=== PATIENT | female | born 1945 | race Caucasian/White ===

== ENCOUNTER 2016-05-31 15:36 | Emergency (ER) | payer OTHER ==
[2016-05-31 15:52] VITALS: BP 151/79
--- NOTE | 2016-05-31 16:34 | UC ---
Complaint Female HPI - HPI Summary HPI Summary: 70 yo female with dysuria/urgency /frequency x 1 day no f/c no n/v no back or abd pain - History Of Current Complaint Chief Complaint: UCGU Stated Complaint: FREQUENT URINATION Time Seen by Provider: 05/31/16 16:30 Hx Obtained From: Patient Onset/Duration: Gradual Onset, Lasting Hours Timing: Intermittent, Lasting Seconds Severity Initially: Moderate Severity Currently: None Pain Intensity: 0 - pain only when voiding Pain Scale Used: 0-10 Numeric Character: Burning Aggravating Factor(s): Urination Associated Signs And Symptoms: Negative: Fever, Back Pain, Vaginal Bleeding/ Discharge, Vaginal Discharge, Nausea, Vomiting(# Of Episodes =), Genital Swelling Related Hx: Similar Episode/Dx as: - uti - Allergies/Home Medications Allergies/Adverse Reactions: Allergies Allergy/AdvReac Type Severity Reaction Status Date / Time MUSTS AND MOLDS Allergy Sneezing Uncoded 05/31/16 15:52 TOMATOS Allergy ASTHMA Uncoded 05/31/16 15:52 SYMPTOMS Home Medications: Home Medications Albuterol Sulfate [Proair Respiclick] 05/31/16 [History Confirmed 05/31/16] Loratadine [Claritin] 10 mg PO 05/31/16 [History] Rx Nasal Reese* 05/31/16 [History] PMH/Surg Hx/FS Hx/Imm Hx Previously Healthy: Yes Endocrine History Of: Denies: Diabetes Cardiovascular History Of: Reports: Hypertension - ON MEDS Denies: Cardiac Disorders, Pacemaker/ICD, Congestive Heart Failure Respiratory History Of: Reports: Asthma Denies: COPD GI/ History Of: Reports: Ulcer - gerd Denies: Renal Disease Psychological History Of: Reports: Anxiety - ASTHMA RELATED, Depression - Surgical History Surgical History: Yes Surgery Procedure, Year, and Place: right benign cyst removed from leg near her rt knee Lumpectomy Right breast 01/16/12 Left knee miniscus repair 09/2013 AND LIPOMA REMOVAL - Family History Known Family History: Positive: Hypertension - Social History Alcohol Use: Rare Alcohol Amount: 1 PER MONTH Substance Use Type: None Smoking Status (MU): Former Smoker Amount Used/How Often: 1/2 PACK A DAY Have You Smoked in the Last Year: No When Did the Patient Quit Smoking/Using Tobacco: 1989 - Immunization History Most Recent Influenza Vaccination: Jan 2015 Most Recent Tetanus Shot: 2013 Most Recent Pneumonia Vaccination: 2014 Review of Systems Constitutional: Negative Skin: Negative Eyes: Negative ENT: Negative Respiratory: Negative Cardiovascular: Negative Gastrointestinal: Negative Genitourinary: Dysuria, Frequency, Urgency Motor: Negative Neurovascular: Negative Musculoskeletal: Negative Neurological: Negative Psychological: Negative All Other Systems Reviewed And Are Negative: Yes Physical Exam Triage Information Reviewed: Yes Appearance: Well-Appearing, No Pain Distress, Well-Nourished Vital Signs: Initial Vital Signs Temp 97.8 F 05/31/16 15:48 Pulse 71 05/31/16 15:48 Resp 16 05/31/16 15:48 BP 151/79 05/31/16 15:48 Pulse Ox 100 05/31/16 15:48 Vital Signs Reviewed: Yes Eyes: Positive: Conjunctiva Clear ENT: Positive: Normal ENT inspection, Hearing grossly normal. Negative: Nasal congestion, Nasal drainage, Tonsillar swelling, Tonsillar exudate, Trismus, Muffled/hoarse voice Neck: Positive: Supple, Nontender Respiratory: Positive: Lungs clear, Normal breath sounds, No respiratory distress, No accessory muscle use Cardiovascular: Positive: RRR, No Murmur, Pulses Normal Abdomen Description: Positive: Nontender, No Organomegaly, Soft. Negative: CVA Tenderness (R), CVA Tenderness (L) Musculoskeletal: Positive: ROM Intact, No Edema Neurological Exam: Normal Neurological: Positive: Alert Psychological Exam: Normal Skin Exam: Normal Complaint Female Dx - Differential Dx/Diagnosis Provider Diagnoses: UTI Discharge - Discharge Plan Condition: Stable Disposition: HOME Prescriptions: Nitrofurantoin Monohyd Macro [Macrobid] 100 mg PO BID #14 cap Phenazopyridine TAB* [Pyridium TAB*] 100 mg PO TID #6 tab Patient Education Materials: Urinary Tract Infection in Women (ED) Referrals: Judi Da Silva MD [Primary Care Provider] - 3 Days (if not better) Additional Instructions: recheck for new or worsening symptoms I expect you to be normal or near normal within a couple of days a urine culture is pending
[2016-05-31] MEDS ORDERED: Nitrofurantoin Macrocrystals* 100 MG CAP PO ONE (16:36)
[2016-05-31] MEDS ORDERED: Phenazopyridine TAB* 100 MG PO ONE (16:36)
[2016-05-31] MEDS ORDERED: Nitrofurantoin Macrocrystals* 50 MG CAP PO ONE (16:43)
== END 2016-05-31 16:40 | disposition home or self-care (01) ==
LOC: UCEAST 15:36
DX: N39.0 Urinary tract infection, site not specified (principal); I10 Essential (primary) hypertension; Z87.891 Personal history of nicotine dependence
CPT/HCPCS: 81002; 87086; 99212; A9270-GY; G0463

== ENCOUNTER → 2016-07-30 06:50 | Day surgery (SDC) | payer OTHER ==
[~2016-07-30 06:50] MED LIST: Acetaminophen TAB* 325 MG PO PRN; Buffered Lidocaine 1% SYRIN* 3 ML/SYR SYRINGE INTRADERM ONE; Cyclopentolate 1% OPTH.SOL* 2 ML BTL ONE; Flurbiprofen 0.03% OPTH.SOL* 2.5 ML BTL ONE; Lidocaine 1% MPF* 2 ML VIAL ONE; Lidocaine 2% EPI 1:200000 MPF* 20 ML VIAL ONE; Midazolam* 1 MG/ML 2 ML VIAL (2 MG) ONE; Neomycin/Polymy/Dex OPTH.SUSP* MAXITROL 0.1% 5 ML ONE; Phenylephrine 2.5% OPTH.SOL* 2 ML BTL ONE; Povidone Iodine 5% OPTH* 30 ML BTL ONE; Proparacaine 0.5% OPHTH.SOL* 15 ML BTL ONE; acetaZOLAMIDE TAB* 250 MG ONE; fentaNYL* 50 MCG/ML 2 ML VIAL (100 MCG VIAL) ONE
[2016-07-30 09:37] VITALS: BP 154/79
--- NOTE | 2016-07-30 10:25 | OP ---
DATE OF OPERATION: 07/30/2016. DATE OF : 1945. SURGEON: João Cortes M.D. PREOPERATIVE DIAGNOSIS: Cataract right eye. POSTOPERATIVE DIAGNOSIS: Cataract right eye. OPERATIVE PROCEDURE: Phacoemulsification right eye with IOL and CTR incision. PROCEDURE: The patient was brought to the operating room after being given 1/2 % Alcaine with epinephrine drops in the preoperative area. The eye was prepped and draped in the usual sterile fashion. Sterile drape and eyelid speculum were placed. Again, topical 1/2% Alcaine with epinephrine was given. A paracentesis incision was made at the 9 o'clock position with the No.75 blade. Clear cornea incision 2.2 x 2.2-mm was created at the 12 o'clock position starting at the anterior limbus using the 2.2-mm keratome. The anterior chamber was irrigated with 0.4 mL of 1% non-preservative intracameral lidocaine and filled with DisCoVisc. A capsulorrhexis was completed using the cystotome and the Utrata forceps. Hydrodissection was performed with balanced salt solution. The lens nucleus was removed with the Phacoemulsification handpiece without incident. Cortex was removed with the irrigation-aspiration handpiece. The capsular bag was re-inflated using DisCoVisc and an SN60WF 16.5 implant was inserted with the shooter, followed by an Carlos ACTR 12 capsular tension ring inserted with the shooter. The irrigation-aspiration handpiece was used to remove all residual DisCoVisc. The eye was refilled with balanced salt solution and the wound checked and found to be watertight. Topical Maxitrol drops were given. [id number]/[facility] #: [id number] [facility]ITAL[facility]
== END | disposition home or self-care (01) ==
LOC: OREAST 06:50
PROVIDERS: ATTEND Specialist
DX: H25.811 Combined forms of age-related cataract, right eye (principal); H40.1414 Capsular glaucoma with pseudoexfoliation of lens, right eye, indeterminate stage; I10 Essential (primary) hypertension; J45.909 Unspecified asthma, uncomplicated; E66.01 Morbid (severe) obesity due to excess calories; Z68.41 Body mass index [BMI] 40.0-44.9, adult
CPT/HCPCS: J2250; J3010; V2632

== ENCOUNTER → 2016-08-06 06:16 | Day surgery (SDC) | payer OTHER ==
[~2016-08-06 06:16] MED LIST changes: -Midazolam* 1 MG/ML 2 ML VIAL (2 MG) ONE; +Midazolam* 1 MG/ML 5 ML VIAL (5 MG) ONE; -fentaNYL* 50 MCG/ML 2 ML VIAL (100 MCG VIAL) ONE
[2016-08-06 08:25] VITALS: BP 170/83
--- NOTE | 2016-08-06 09:36 | OP ---
DATE OF OPERATION: 08/06/2016 - [facility] DATE OF : 1945. SURGEON: João Cortes M.D. PREOPERATIVE DIAGNOSIS: Cataract left eye. POSTOPERATIVE DIAGNOSIS: Cataract left eye. OPERATIVE PROCEDURE: Phacoemulsification left eye with IOL. DESCRIPTION OF PROCEDURE: The patient was brought to the operating room after being given 1/2% Alcaine with epinephrine drops in the preoperative area. The eye was prepped and draped in the usual sterile fashion. Sterile drape and eyelid speculum were placed. Again, topical 1/2% Alcaine with epinephrine was given. A paracentesis incision was made at the 3 o'clock position with the No.75 blade. Clear cornea incision 2.2 x 2.2-mm was created at the 6 o'clock position starting at the anterior limbus using the 2.2-mm keratome. The anterior chamber was irrigated with 0.4 mL of 1% non-preservative intracameral lidocaine and filled with DisCoVisc. A capsulorrhexis was completed using the cystotome and the Utrata forceps. Hydrodissection was performed with balanced salt solution. The lens nucleus was removed with the Phacoemulsification handpiece without incident. Cortex was removed with the irrigation-aspiration handpiece. The capsular bag was re-inflated using DisCoVisc and an [id number] implant was inserted with the shooter. The irrigation-aspiration handpiece was used to remove all residual DisCoVisc. The eye was refilled with balanced salt solution and the wound checked and found to be watertight. Topical Maxitrol drops were given. [id number]/[facility] #: [id number] [facility]
== END | disposition home or self-care (01) ==
LOC: OREAST 06:16
PROVIDERS: ATTEND Specialist
DX: H25.812 Combined forms of age-related cataract, left eye (principal); H40.1411 Capsular glaucoma with pseudoexfoliation of lens, right eye, mild stage; I10 Essential (primary) hypertension; J45.909 Unspecified asthma, uncomplicated; K21.9 Gastro-esophageal reflux disease without esophagitis
CPT/HCPCS: J2250; V2632

== ENCOUNTER 2016-08-26 12:48 | Emergency (ER) | payer OTHER ==
[2016-08-26 13:56] VITALS: BP 148/82
--- NOTE | 2016-08-26 14:44 | UC ---
Complaint Female HPI - HPI Summary HPI Summary: Increae frequency of urination with irratation while voiding for 2 days - History Of Current Complaint Chief Complaint: UCGU Stated Complaint: UTI -TYPE SYMPTOMS Time Seen by Provider: 08/26/16 14:25 Hx Obtained From: Patient ?: No Onset/Duration: Sudden Onset, Still Present Timing: Constant Severity Initially: Moderate Severity Currently: Moderate Character: Burning Aggravating Factor(s): Urination Alleviating Factor(s): Nothing Associated Signs And Symptoms: Positive: Negative - Allergies/Home Medications Allergies/Adverse Reactions: Allergies Allergy/AdvReac Type Severity Reaction Status Date / Time dust and molds Allergy Wheezing Uncoded 08/26/16 13:56 TOMATOS Allergy ASTHMA Uncoded 08/26/16 13:56 SYMPTOMS Home Medications: Home Medications HYDROcodone/ACETAMIN 5-325 MG* [[place] 5-325 TAB*] 1 tab PO QID PRN 08/26/16 [ History Confirmed 08/26/16] PMH/Surg Hx/FS Hx/Imm Hx Previously Healthy: No Endocrine History Of: Denies: Diabetes Cardiovascular History Of: Reports: Hypertension - ON MEDS Denies: Cardiac Disorders, Pacemaker/ICD, Congestive Heart Failure Respiratory History Of: Reports: Asthma, Bronchitis - june 30, was on meds, ok now Denies: COPD GI/ History Of: Reports: Ulcer - gerd Denies: Renal Disease Psychological History Of: Reports: Anxiety - ASTHMA RELATED, Depression - Surgical History Surgical History: Yes Surgery Procedure, Year, and Place: right benign cyst removed from leg near her rt knee Lumpectomy Right breast 01/16/12 Left knee miniscus repair 09/2013 AND LIPOMA REMOVAL - Family History Known Family History: Positive: None, Hypertension - Social History Occupation: Retired Lives: With Family Alcohol Use: Rare Alcohol Amount: 1 PER MONTH Substance Use Type: None Smoking Status (MU): Former Smoker Amount Used/How Often: 1/2 PACK A DAY Have You Smoked in the Last Year: No When Did the Patient Quit Smoking/Using Tobacco: 1989 - Immunization History Most Recent Influenza Vaccination: Jan 2015 Most Recent Tetanus Shot: 2012 Most Recent Pneumonia Vaccination: 2013 Review of Systems Constitutional: Negative Skin: Negative Eyes: Negative ENT: Negative Respiratory: Negative Cardiovascular: Negative Gastrointestinal: Negative Genitourinary: Dysuria, Frequency, Urgency Motor: Negative Neurovascular: Negative Musculoskeletal: Negative Neurological: Negative Psychological: Negative All Other Systems Reviewed And Are Negative: Yes Physical Exam Triage Information Reviewed: Yes Appearance: Well-Appearing, No Pain Distress, Well-Nourished Vital Signs: Initial Vital Signs Temp 96.9 F 08/26/16 13:54 Pulse 75 08/26/16 13:54 Resp 16 08/26/16 13:54 BP 148/82 08/26/16 13:54 Pulse Ox 100 08/26/16 13:54 Vital Signs Reviewed: Yes Eye Exam: Normal Eyes: Positive: Conjunctiva Clear ENT Exam: Normal ENT: Positive: Normal ENT inspection, Hearing grossly normal. Negative: Nasal congestion, Nasal drainage, Trismus, Muffled/hoarse voice Dental Exam: Normal Neck exam: Normal Neck: Positive: Supple, Nontender Respiratory Exam: Normal Respiratory: Positive: Chest non-tender, Lungs clear, Normal breath sounds, No respiratory distress Cardiovascular Exam: Normal Cardiovascular: Positive: RRR, Pulses Normal, Brisk Capillary Refill Abdominal Exam: Normal Abdomen Description: Positive: Nontender, No Organomegaly, Soft. Negative: CVA Tenderness (R), CVA Tenderness (L) Bowel Sounds: Positive: Present Musculoskeletal Exam: Normal Musculoskeletal: Positive: Strength Intact, ROM Intact Neurological Exam: Normal Neurological: Positive: Alert Psychological Exam: Normal Skin Exam: Normal Complaint Female Dx - Course Course Of Treatment: keflex, culture urine, increase fluids, re-check prn, and follow BP with PCP - Differential Dx/Diagnosis Differential Diagnosis/HQI/PQRI: Renal Colic, Retained Foreign Body, Ureteral Stone, Urinary Tract Infection Provider Diagnoses: UTI, HTN Discharge - Discharge Plan Condition: Stable Disposition: HOME Prescriptions: Phenazopyridine TAB* [Pyridium 100 mg TAB*] 100 mg PO TID PRN #6 tab PRN Reason: urinary pain and burning Sulfamethox/Trimethoprim DS* [Bactrim DS 800/160 TAB*] 1 tab PO BID #14 tab Patient Education Materials: Phenazopyridine (By mouth), Urinary Tract Infection in Women (ED), DASH Eating Plan (ED), Hypertension (ED) Referrals: Judi Da Silva MD [Primary Care Provider] - 2 Weeks
== END 2016-08-26 14:52 | disposition home or self-care (01) ==
LOC: UCEAST 12:48
DX: N39.0 Urinary tract infection, site not specified (principal); I10 Essential (primary) hypertension; J45.909 Unspecified asthma, uncomplicated; F41.8 Other specified anxiety disorders; Z87.891 Personal history of nicotine dependence
CPT/HCPCS: 81003; 87077; 87086; 87186; 99212; G0463

== ENCOUNTER 2016-11-17 13:45 | Emergency (ER) | payer SELFPAY ==
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
[2016-11-17 16:00] VITALS: BP 147/92
== END 2016-11-17 16:03 | disposition home or self-care (01) ==
LOC: ED 13:45
DX: M54.2 Cervicalgia (principal); Z87.891 Personal history of nicotine dependence; V89.2XXA Person injured in unspecified motor-vehicle accident, traffic, initial encounter; Y93.9 Activity, unspecified; Y92.9 Unspecified place or not applicable
CPT/HCPCS: 71250; 72125; 99281

== ENCOUNTER 2017-04-14 17:33 | Emergency (ER) | payer OTHER ==
[2017-04-14 18:25] VITALS: BP 140/80
--- NOTE | 2017-04-14 19:38 | UC ---
Lilly Cortez Thomas, scribed for Radha Toledo MD on 04/14/17 at 1929 . Complaint Female HPI - HPI Summary HPI Summary: The patient is a 71 year old female presenting to Urgent Care complaining of UTI symptoms that began this AM. She has lower abdominal discomfort consistent with her prior UTIs. The pain is rated 2/10. She has a history of UTIs with her last UTI about a year ago. Patient denies fever, back pain, and nausea. Previous urine culture results from 10/24/16 was reviewed. Patients medication reviewed this visit. - History Of Current Complaint Chief Complaint: UCGU Stated Complaint: PAIN WITH URINATION Time Seen by Provider: 04/14/17 19:20 Hx Obtained From: Patient, Medical Records Onset/Duration: Lasting Hours - onset this AM, Still Present Timing: Constant Severity Currently: Moderate Aggravating Factor(s): Urination Alleviating Factor(s): Nothing Associated Signs And Symptoms: Negative: Fever Related Hx: Similar Episode/Dx as: - prior UTI - Allergies/Home Medications Allergies/Adverse Reactions: Allergies Allergy/AdvReac Type Severity Reaction Status Date / Time dust and molds Allergy Wheezing Uncoded 04/14/17 18:24 TOMATOS Allergy ASTHMA Uncoded 04/14/17 18:24 SYMPTOMS PMH/Surg Hx/FS Hx/Imm Hx Previously Healthy: No Cardiovascular History: Hypertension Respiratory History: Asthma GI/ History: Gastroesophageal Reflux - Surgical History Surgical History: Yes Surgery Procedure, Year, and Place: right benign cyst removed from leg near her rt knee Lumpectomy Right breast 01/16/12 Left knee miniscus repair 09/2013 AND LIPOMA REMOVAL - Family History Known Family History: Positive: Hypertension, Diabetes - Social History Occupation: Employed Full-time Lives: With Family Alcohol Use: Rare Alcohol Amount: 1 PER MONTH Substance Use Type: None Smoking Status (MU): Former Smoker Amount Used/How Often: 1/2 PACK A DAY Have You Smoked in the Last Year: No When Did the Patient Quit Smoking/Using Tobacco: 1989 - Immunization History Most Recent Influenza Vaccination: Jan 2015 Most Recent Tetanus Shot: 2012 Most Recent Pneumonia Vaccination: 2013 Review of Systems Constitutional: Other - NEGATIVE: fever Genitourinary: Other - UTI symptoms, lower abdominal discomfort, yellowing vaginal discharge Is Patient Immunocompromised?: No All Other Systems Reviewed And Are Negative: Yes Physical Exam Triage Information Reviewed: Yes Appearance: Well-Appearing, No Pain Distress, Well-Nourished Vital Signs: Initial Vital Signs Temp 97.2 F 04/14/17 18:20 Pulse 84 04/14/17 18:20 Resp 18 04/14/17 18:20 BP 140/80 04/14/17 18:20 Pulse Ox 100 04/14/17 18:20 Vital Signs Reviewed: Yes Eye Exam: Normal Eyes: Positive: Conjunctiva Clear Dental Exam: Normal Neck exam: Normal Neck: Positive: Supple, Nontender, No Lymphadenopathy Respiratory Exam: Normal Respiratory: Positive: Chest non-tender, Lungs clear, Normal breath sounds, No respiratory distress, No accessory muscle use Cardiovascular Exam: Normal Cardiovascular: Positive: RRR, No Murmur Abdominal Exam: Normal Abdomen Description: Positive: Nontender, No Organomegaly, Soft Bowel Sounds: Positive: Present Musculoskeletal Exam: Normal Musculoskeletal: Positive: Strength Intact Neurological Exam: Normal Neurological: Positive: Alert Psychological Exam: Normal Psychological: Positive: Normal Response To Family Complaint Female Dx - Course Course Of Treatment: Blood pressure noted and patient informed of follow up with PCP. Patient presents with UTI symptoms onset this morning. Urinalysis shows 1+ leukocyte esterase. will start abx. culture. pyridium. diflucan prn yeast related to abx. pt comfortable and in agreement with plan - Differential Dx/Diagnosis Provider Diagnoses: dysuria Discharge - Discharge Plan Condition: Stable Disposition: HOME Prescriptions: Fluconazole [Diflucan 150 MG (NF)] 150 mg PO ONCE #1 tab Phenazopyridine TAB* [Pyridium 100 mg TAB*] 100 mg PO TID #6 tab Sulfamethox/Trimethoprim DS* [Bactrim DS 800/160 TAB*] 1 tab PO BID #14 tab Patient Education Materials: Urinary Tract Infection in Women (ED) Referrals: Judi Da Silva MD [Primary Care Provider] - Additional Instructions: - stay well hydrated - drink plenty of non-alcoholic, non caffinated beverages - your urine will be further tested - if you require any changes to your treatment, we will contact you - this usually take 2 days - Take your antibiotics exactly as prescribed until gone -Okay to take pyridium as previous for bladder spasm pain. This will cause your urine to be orange.You may also take Tylenol every 6 hours as needed for discomfort. - You have been prescribed a one time medication for a yeast infection - take this at the end of your antibiotic course. -- Contact your primary doctor to arrange a follow-up appointment next week. Contact your doctor or return with questions or concerns The documentation as recorded by the Lilly robledo Thomas accurately reflects the service I personally performed and the decisions made by me, Radha Toledo MD.
[2017-04-14] MEDS: Phenazopyridine TAB* 100 MG PO ONE (19:45)
--- NOTE | 2017-04-16 15:26 | UC ---
Progress - Progress Note Progress Note: please call patient advise her she did not have a urinary tract infection. She may stop the antibiotics, ok to take the Diflucan if needed . If symptoms are persisting follow with pcp or return to ED/Urgent Care <Mana aZldivar - Last Filed: 04/16/17 15:25> Attestation Statement User Type: Provider - I was available for consult. This patient was seen by the [facility]. The patient was not presented to, seen by, or examined by me. -Evelio <Radha Toledo - Last Filed: 04/17/17 09:15>
== END 2017-04-14 19:56 | disposition home or self-care (01) ==
LOC: UCEAST 17:33
DX: R30.0 Dysuria (principal); Z87.440 Personal history of urinary (tract) infections; N89.8 Other specified noninflammatory disorders of vagina; R10.30 Lower abdominal pain, unspecified; I10 Essential (primary) hypertension; J45.909 Unspecified asthma, uncomplicated; K21.9 Gastro-esophageal reflux disease without esophagitis; Z87.891 Personal history of nicotine dependence
CPT/HCPCS: 81003; 87086; 99212; A9270-GY; G0463

== ENCOUNTER 2019-12-07 04:13 | Observation (INO) ==
[2019-12-07 05:34] LABS: ABS Lymphocytes 1.1 10^3/ul (1.0-4.8); ABS Monocytes 1.2 10^3/ul (0-0.8); ABS Neutrophils 15.5 10^3/ul (1.5-7.7); Hematocrit 38 % (35-47); Lymphocyte % 6.1 %; Mean Corpuscular HGB Conc 35 g/dL (31-36); Mean Corpuscular Hemoglobin 32 pg (27-31); Mean Corpuscular Volume 91 fL (80-97); Mean Platelet Volume 7.1 fL (7.4-10.4); Platelet Count 254 10^3/uL (150-450); Red Blood Count 4.11 10^6 /uL (3.70-4.87); Red Cell Distribution Width 14 % (10-15); White Blood Count 17.8 10^3/uL (3.5-10.8)
[2019-12-07 05:43] LABS: INR 1.14 (0.82-1.09)
[2019-12-07 05:53] LABS: Albumin 4.1 g/dL (3.2-5.2); Albumin/Globulin Ratio 1.2 (1-3); BUN/Creatinine Ratio 20.2 (8-20); C Reactive Protein 183.38 mg/L (<8.01); Calcium 9.5 mg/dL (8.6-10.3); EGFR African American 59.4 (>60); EGFR Non-African American 49.1 (>60); Globulin 3.4 g/dL (2-4); Potassium 3.7 mmol/L (3.5-5.0); Total Bilirubin 1.1 mg/dL (0.2-1.0); Total Protein 7.5 g/dL (6.4-8.9)
[2019-12-07] MEDS ORDERED: Iodixanol (CONTRAST) 320 MG/ML 100 ML SDV IV ONE (06:36)
[2019-12-07] MEDS ORDERED: NS 0.9% 1000 ml BAG 1,000 ML IV ONE (06:57)
[2019-12-07] MEDS ORDERED: Ondansetron 4 mg VIAL 2 MG/ML 2 ml VIAL IV ONE (07:46)
[2019-12-07 08:51] LABS: Urine Appearance Clear; Urine Bilirubin Negative (Negative); Urine Blood 1+ (Negative); Urine Color Yellow; Urine Glucose Negative (Negative); Urine Ketones 1+ (Negative); Urine Nitrite Negative (Negative); Urine Protein Negative (Negative); Urine Specific Gravity 1.035 (1.010-1.030); Urine Urobilinogen Negative (Negative)
[2019-12-07 08:55] LABS: Urine Bacteria Absent (Absent); Urine Red Blood Cell Trace(0-2/hpf) (Absent); Urine White Blood Cell Trace(0-5/hpf) (Absent)
[2019-12-07] MEDS ORDERED: Senna TAB 8.6 mg TAB PO PRN (08:57)
[2019-12-07] MEDS ORDERED: oxyCODONE/Acetamin 5/325 mg TAB PO PRN (08:57)
[2019-12-07] MEDS ORDERED: Ondansetron 4 mg VIAL 2 MG/ML 2 ml VIAL IV PRN (08:57)
[2019-12-07] MEDS ORDERED: Morphine 2 MG/ML SYRINGE IV PRN (08:57)
[2019-12-07] MEDS ORDERED: Famotidine IV 10 MG/ML 2 ml VIAL (20 mg) IV SLOW PU ONE (09:01)
[2019-12-07] MEDS ORDERED: Piperacillin/Tazobac ADVAN 3.375 GM in NS 0.9% 100 ml BAG 100 ML IVPB ONE (09:02)
[2019-12-07] MEDS ORDERED: hydrALAZINE 20 mg/ml 1 ML Vial IV IV SLOW PU PRN (09:15)
[2019-12-07] MEDS ORDERED: Albuterol 0.5% CONC NEB.SOL 5 mg/ml 20 ml BOT INH PRN (09:21)
[2019-12-07] MEDS ORDERED: Zosyn per Pharmacy NOTE FOLLOW UP SCH (10:00)
[2019-12-07] MEDS ORDERED: Albuterol 2.5mg/3 ml (0.083%) NEB.SOLN INH PRN (10:22)
[2019-12-07] MEDS: Aspirin EC 81 mg TAB.EC (enteric coated) PO SCH (13:02)
[2019-12-07] MEDS: Lactated Ringers 1000 ml BAG 1,000 ML IV SCH ×2 (13:04→23:19)
[2019-12-07] MEDS ORDERED: Famotidine IV 10 MG/ML 2 ml VIAL (20 mg) IV SLOW PU PRN (13:36)
[2019-12-07] MEDS ORDERED: ZOSYN 3.375 GM Q8H per EXTENDED INFUSION IV SCH (17:00)
[2019-12-07] MEDS ORDERED: ESZOPICLONE 1 MG PO SCH (21:00)
[2019-12-08 04:35] LABS: ABS Eosinophils 0.1 10^3/ul (0-0.6); ABS Lymphocytes 1.6 10^3/ul (1.0-4.8); ABS Neutrophils 10.6 10^3/ul (1.5-7.7); Eosinophil % 0.7 %; Hematocrit 33 % (35-47); Hemoglobin 11.3 g/dL (12.0-16.0); Lymphocyte % 11.7 %; Mean Corpuscular HGB Conc 35 g/dL (31-36); Mean Corpuscular Hemoglobin 31 pg (27-31); Mean Corpuscular Volume 91 fL (80-97); Mean Platelet Volume 6.9 fL (7.4-10.4); Platelet Count 209 10^3/uL (150-450); Red Blood Count 3.62 10^6 /uL (3.70-4.87); Red Cell Distribution Width 14 % (10-15); White Blood Count 13.3 10^3/uL (3.5-10.8)
[2019-12-08 04:53] LABS: Albumin 3.4 g/dL (3.2-5.2); Albumin/Globulin Ratio 1.1 (1-3); BUN/Creatinine Ratio 13.8 (8-20); Calcium 8.8 mg/dL (8.6-10.3); EGFR African American 70.4 (>60); EGFR Non-African American 58.2 (>60); HDL Cholesterol 51.3 mg/dL; Potassium 3.4 mmol/L (3.5-5.0); Total Bilirubin 0.7 mg/dL (0.2-1.0); Total Protein 6.4 g/dL (6.4-8.9)
[2019-12-08] MEDS: Lactated Ringers 1000 ml BAG 1,000 ML IV SCH (07:13)
[2019-12-08] MEDS: KCL 20 MEQ/100 ML IVPREMIX 20 MEQ/100 ML BAG IV SCH ×2 (09:22→12:44)
[2019-12-08] MEDS: Aspirin EC 81 mg TAB.EC (enteric coated) PO SCH (09:22)
[2019-12-08] MEDS ORDERED: MELOXICAM 7.5 MG PO PRN (10:48)
[2019-12-08] MEDS ORDERED: Potassium Chlor 20 meq TAB.ER PO ONE (12:36)
[2019-12-08] MEDS ORDERED: Enoxaparin 40 MG/0.4 ML SYR SUBCUT SCH (18:30)
[2019-12-09 07:42] VITALS: BP 139/58
[2019-12-09] MEDS: Aspirin EC 81 mg TAB.EC (enteric coated) PO SCH (09:34)
[2019-12-09 10:29] LABS: BUN/Creatinine Ratio 16.7 (8-20); Calcium 8.8 mg/dL (8.6-10.3); EGFR African American 68.7 (>60); EGFR Non-African American 56.8 (>60); Potassium 3.6 mmol/L (3.5-5.0)
== END 2019-12-09 10:55 | disposition home or self-care (01) ==
LOC: SSU 04:13 → ED 04:13 → SSU 09:54
PROVIDERS: ADMIT Internal Medicine; ATTEND Internal Medicine